=== PATIENT | female | born 2000 | race Caucasian/White ===

== ENCOUNTER 2021-10-20 12:37 | Outpatient (CLI) | payer OTHER, SELFPAY | END 2021-10-20 12:38 | disposition home or self-care (01) | LOC: LKVREF 10-28 11:07 | PROVIDERS: Visit Provider Nurse Practitioner Family | DX: R10.9 Unspecified abdominal pain (principal); N39.0 Urinary tract infection, site not specified | CPT/HCPCS: 87086 ==

== ENCOUNTER 2022-06-02 14:09 | Outpatient (CLI) | payer BC, SELFPAY | END 2022-06-02 14:10 | disposition home or self-care (01) | PROVIDERS: Visit Provider Physician Assistant | DX: N89.8 Other specified noninflammatory disorders of vagina (principal); R10.2 Pelvic and perineal pain; N92.0 Excessive and frequent menstruation with regular cycle; Z97.5 Presence of (intrauterine) contraceptive device; B37.31 Acute candidiasis of vulva and vagina | CPT/HCPCS: 87086 ==

== ENCOUNTER 2022-07-07 10:35 | Outpatient (CLI) | payer BC, SELFPAY ==
[2022-07-07 15:36] LABS: Chlamydia DNA Amplified* NOT DETECTED (No Detected); GC DNA Amplified* NOT DETECTED (No Detected)
== END 2022-07-07 10:36 | disposition home or self-care (01) ==
PROVIDERS: Visit Provider Registered Nurse
DX: Z11.3 Encounter for screening for infections with a predominantly sexual mode of transmission (principal)
CPT/HCPCS: 87491; 87591